=== PATIENT | male | born 1995 | race Caucasian/White ===

== ENCOUNTER 2018-04-14 14:53 | Emergency (ER) | payer OTHER ==
[~2018-04-14] VITALS: Ht 188 cm; Wt 104.3 kg
[2018-04-14 15:01] VITALS: BP 156/98; Ht 188 cm; Wt 104.3 kg
== END 2018-04-14 18:11 | disposition home or self-care (01) ==
LOC: ED 14:53
DX: S61.213A Laceration without foreign body of left middle finger without damage to nail, initial encounter (principal); S61.215A Laceration without foreign body of left ring finger without damage to nail, initial encounter; Z88.8 Allergy status to other drugs, medicaments and biological substances; Z88.0 Allergy status to penicillin; W45.8XXA Other foreign body or object entering through skin, initial encounter; Y93.89 Activity, other specified; Y92.89 Other specified places as the place of occurrence of the external cause; Y99.8 Other external cause status
CPT/HCPCS: 90715; J1885; J2001; J2270; J2405; J3490; J7030; Q0092

== ENCOUNTER 2018-08-01 15:10 | Emergency (ER) | payer OTHER ==
[~2018-08-01] VITALS: Ht 185.4 cm; Wt 104.3 kg
[2018-08-01 15:16] VITALS: BP 138/70; Ht 185.4 cm; Wt 104.3 kg
== END 2018-08-01 16:52 | disposition home or self-care (01) ==
LOC: ED 15:10
DX: S91.311A Laceration without foreign body, right foot, initial encounter (principal); Z88.0 Allergy status to penicillin; Z88.8 Allergy status to other drugs, medicaments and biological substances; W22.8XXA Striking against or struck by other objects, initial encounter; Y93.89 Activity, other specified; Y92.89 Other specified places as the place of occurrence of the external cause; Y99.8 Other external cause status
CPT/HCPCS: J2001

== ENCOUNTER 2019-03-23 10:53 | Emergency (ER) | payer OTHER ==
[~2019-03-23] VITALS: Ht 188 cm; Wt 112.5 kg
[2019-03-23 11:19] VITALS: BP 92/66
== END 2019-03-23 13:27 | disposition home or self-care (01) ==
LOC: ED 10:53
DX: S93.401A Sprain of unspecified ligament of right ankle, initial encounter (principal); W01.0XXA Fall on same level from slipping, tripping and stumbling without subsequent striking against object, initial encounter; Y93.89 Activity, other specified; Y92.89 Other specified places as the place of occurrence of the external cause; Y99.8 Other external cause status; Z88.0 Allergy status to penicillin; Z88.8 Allergy status to other drugs, medicaments and biological substances
CPT/HCPCS: Q0092